=== PATIENT | male | born 1980 | race Hispanic/Latino ===

== ENCOUNTER 2023-08-29 13:40 | Emergency (ER) | payer SELFPAY ==
[~2023-08-29] VITALS: Ht 167.6 cm; Wt 88.9 kg
[2023-08-29] MEDS: IBUPROFEN 800 MG TAB PO ONE (15:25)
[2023-08-29] MEDS ORDERED: IBUP-2071 PO (15:47)
[2023-08-29 15:59] VITALS: BP 122/88; PULSE 89; RESP 18; O2SAT 98
== END 2023-08-29 16:00 | disposition home or self-care (01) ==
LOC: EDH 13:40
DX: S00.83XA Contusion of other part of head, initial encounter (principal); S42.191A Fracture of other part of scapula, right shoulder, initial encounter for closed fracture; X58.XXXA Exposure to other specified factors, initial encounter; Y93.89 Activity, other specified; Y92.89 Other specified places as the place of occurrence of the external cause; Y99.8 Other external cause status
CPT/HCPCS: 70450; 73030